=== PATIENT | female | born 1980 | race Hispanic/Latino ===

== ENCOUNTER 2020-11-20 22:27 | Emergency (ER) | payer OTHER, MEDICAID, SELFPAY ==
[2020-11-20 22:43] VITALS: BP 143/87; PULSE 73; RESP 16; TEMP 36.6; O2SAT 98; BMI 21.9
--- NOTE | 2020-11-20 22:55 | ED.ALLEREA ---
HPI - Allergic Reaction General Chief complaint: Allergic Reaction Stated complaint: allergic reaction Time Seen by Provider: 11/20/20 22:43 Source: patient Mode of arrival: Ambulatory Limitations: language barrier History of Present Illness HPI narrative: 40-year-old woman who per to some new facial cleanser pads and noticed irritation within hours of using them for the 1st time. The irritation has continued to worsen she presented to an urgent care clinic and was prescribed 2.5% hydrocortisone to use on her face and Vistaril to help with the itching. She continues to have dermal edema and small erythematous papules that I suspect are a reaction to the topical hydrocortisone. With the increasing dermal edema she is noticing some decreasing facial sensitivity. There is no facial muscular weakness. Review of Systems Review of Systems ROS Unobtainable: All systems reviewed & are unremarkable except as noted in HPI and below Patient History Social History Smoking Status: Never smoker Smoking Status: Never smoker Substance Use Type: does not use Exam Narrative Exam Narrative: General: Alert appropriate in mild distress secondary to facial itching ENT: Continued topical dermatitis reaction over the face and upper neck with dermal edema and mild erythema without hives. Respiratory: Able to speak in full sentences, no obvious respiratory distress, no wheezing, stridor or respiratory retractions Skin: No obvious rashes, warm and dry Neurologic: Grossly intact no obvious asymmetries or abnormalities Psych, appropriate insight and affect, cooperative Initial Vital Signs Initial Vital Signs: Vital Signs Temperature 97.9 F 11/20/20 22:43 Pulse Rate 73 11/20/20 22:43 Respiratory Rate 16 11/20/20 22:43 Blood Pressure 143/87 H 11/20/20 22:43 Pulse Oximetry 98 11/20/20 22:43 Course Orders Ordered: Discontinued Medications Methylprednisolone (Methylprednisolone 125 Mg/2 Ml Vial) 60 mg IM NOW ONE Stop: 11/20/20 22:53 Vital Signs Vital signs: Vital Signs - 8 hr 11/20/20 22:43 Temperature 97.9 F Pulse Rate 73 Respiratory Rate 16 Blood Pressure 143/87 H Pulse Oximetry 98 MDM - Allergic Reaction Medical Records Attestation: I reviewed the patient's medical records. [facility] Narrative Medical decision making narrative: 40-year-old woman with an adverse reaction to new cosmetic wipes causing a contact dermatitis. I believe the topical steroid she is currently using is a contact dermatitis and have asked her to discontinue this. She responded nicely to 60 mg of IM Solu-Medrol and has Vistaril to use at home. There is no evidence of infection or stroke appreciated at this time. She is safe for home discharge Discharge Plan Departure Patient Disposition: Home Clinical Impression: Allergic reaction Qualifiers: Encounter type: initial encounter Qualified Code(s): T78.40XA - Allergy, unspecified, initial encounter Contact dermatitis Qualifiers: Contact dermatitis type: allergic Contact dermatitis trigger: cosmetics Qualified Code(s): L23.2 - Allergic contact dermatitis due to cosmetics Instructions: DI for Contact Dermatitis Activity Restrictions/Additional Instructions: Thank you for coming in today It appears that you are developing a contact dermatitis from the new facial cleanser. You have appropriately stopped the cleanser. This will fix itself however there are some other things that we can do to help with your symptoms. I have given you a shot of steroids in the emergency department and I suspect that will make a significant difference by tomorrow. Please stop using the 2.5% hydrocortisone, sometimes this can actually make facial skin a little more sensitive. It is okay to continue to use the Vistaril to help control itching and help with sleep as well If you develop any new symptoms, please feel free to return to the emergency department
[2020-11-20] MEDS: methylPREDNISolone 125 MG/2 ML VIAL 60 MG IM (23:08)
== END 2020-11-20 23:20 | disposition home or self-care (01) ==
PROVIDERS: Emergency Provider Emergency Medicine
DX: L23.2 Allergic contact dermatitis due to cosmetics (principal)
CPT/HCPCS: 96372; 99281; 99283; J2930

== ENCOUNTER 2023-04-25 16:33 | Emergency (ER) | payer OTHER, MEDICAID, SELFPAY ==
[2023-04-25] VITALS (8 sets, daily range): BP systolic 111–133; BP diastolic 61–84; PULSE 77–129; RESP 18–28; TEMP 37.8–38.8; O2SAT 96–99; BMI 22.3
--- NOTE | 2023-04-25 16:51 | DI.RAD.S_ITS ---
PROCEDURE: XR CHEST 1V INDICATIONS: suspected sepsis TECHNIQUE: One view of the chest was acquired. COMPARISON: [facility], , XR CXR 1 VIEW, 03/31/2005, 11:35. FINDINGS: Surgical changes and devices: None. Lungs and pleura: Stable nodular density projecting over the left lower lung zone. Lungs are otherwise clear. No consolidation seen. No pleural effusions or pneumothorax. Mediastinum: Mediastinal contours appear normal. Heart size is normal. Bones and chest wall: No suspicious bony lesions. Overlying soft tissues appear unremarkable. IMPRESSION: No acute cardiopulmonary abnormalities or focal airspace disease. Dictated by: Lex Garsia M.D. on 04/25/2023 at 17:22 Approved by: Lex Garsia M.D. on 04/25/2023 at 17:23
[2023-04-25] MEDS: SODIUM CHLORIDE 0.9% 1,000 ML 1000 ML IV ×2 (17:02→18:59)
[2023-04-25] MEDS: ACETAMINOPHEN 325 MG TABLET 650 MG PO (17:02)
--- NOTE | 2023-04-25 17:07 | ED.GENADULT ---
HPI - General Adult General Chief complaint: Upper Respiratory Symptoms Stated complaint: sore throat, fever, cough, headache Time Seen by Provider: 04/25/23 16:51 Source: patient Mode of arrival: Ambulatory History of Present Illness HPI narrative: Patient is a 42-year-old female who arrives in the emergency department for evaluation of multiple symptoms to include sore throat, fever, cough and headache. She recently had dental work performed earlier this week. She states that she did take an antibiotic that she bought in [place] which she states is Augmentin.. She is also complaining of shortness of breath. No vomiting. No neck pain. No skin rashes. No urinary symptoms. Related Data Allergies Allergy/AdvReac Type Severity Reaction Status Date / Time No Known Drug Allergies Allergy Verified 04/25/23 16:39 Review of Systems Constitutional Constitutional: Reports body ache(s) and Reports chills ENT Ears, Nose, Mouth, and Throat: Reports system reviewed and no additional complaints, except as documented Cardiovascular Cardiovascular: Reports system reviewed and no additional complaints, except as documented Respiratory Respiratory: Reports system reviewed and no additional complaints, except as documented Gastrointestinal Gastrointestinal: Reports system reviewed and no additional complaints, except as documented Integumentary/Breasts Skin/Breast: Reports system reviewed and no additional complaints, except as documented Neurologic Neurologic: Reports system reviewed and no additional complaints, except as documented Hematologic/Lymphatic On Anticoagulants: No Patient History Social History Smoking Status: Never smoker Smoking Status: Never smoker Substance Use Type: does not use Exam Initial Vital Signs Initial Vital Signs: Vital Signs Temperature 101.6 F H 04/25/23 16:39 Pulse Rate 129 H 04/25/23 16:39 Respiratory Rate 18 04/25/23 16:39 Blood Pressure 125/84 04/25/23 16:39 Pulse Oximetry 96 04/25/23 16:39 Oxygen Delivery Method Room Air 04/25/23 16:39 Const General: cooperative and No ill appearing HENMT Head: normal to inspection Mouth: lip normal, tongue normal and moist mucous membranes Teeth and gingiva: other (Implants upper gum unremarkable) Resp Effort & Inspection: normal respiratory effort Auscultation: clear to auscultation bilaterally Cardio Rate: tachycardic Rhythm: regular rhythm GI Inspection: normal to inspection and non-distended Palpation: soft and No tender Skin General: no rashes or lesions noted Neuro General: patient alert, patient awake, patient oriented x3 and moves all extremities Speech: speech normal Extrem General: normal to inspection and capillary refill normal Psych Appearance: grossly normal and well kempt Course Orders Ordered: ED Orders 04/25/23 16:49 Urine Microscopic Stat 04/25/23 16:51 XR chest 1V Stat RT Consult Eval and Treat NOW 04/25/23 17:05 Complete Blood Count AUTO DIFF Stat Comprehensive Metabolic Panel Stat Lactate (Lactic Acid) Stat Lipase Stat PTT Partial Thromboplastin Maikel Stat Procalcitonin Stat Prothrombin Time INR Stat EKG-12 Lead Stat 04/25/23 17:17 Blood Culture Stat 04/25/23 17:50 Urine Culture Stat 04/25/23 18:08 Respiratory Panel (Film Array) Stat Discontinued Medications Acetaminophen (Acetaminophen 325 Mg Tablet) 650 mg PO NOW ONE Stop: 04/25/23 16:57 Last Admin: 04/25/23 17:02 Dose: 650 mg Documented By: AT Sodium Chloride (Normal Saline 0.9%) 1,000 mls @ 1,000 mls/hr IV BOLUS ONE Stop: 04/25/23 17:50 Last Admin: 04/25/23 17:02 Dose: 1,000 mls/hr Documented By: AT Ceftriaxone Sodium 1,000 mg/ (Sodium Chloride) 100 mls @ 200 mls/hr IV NOW ONE Stop: 04/25/23 17:09 Last Infusion: 04/25/23 18:11 Dose: 0 mls/hr Documented By: Admin: 04/25/23 17:27 Dose: 200 mls/hr Documented By: LIA Ketorolac Tromethamine (Ketorolac 30 Mg/Ml Vial) 30 mg IV NOW ONE Stop: 04/25/23 18:12 Last Admin: 04/25/23 18:25 Dose: 30 mg Documented By: LIA Ondansetron HCl (Ondansetron 4 Mg/2 Ml Inj) 4 mg IV NOW PRN PRN Reason: Nausea And Vomiting Last Admin: 04/25/23 17:27 Dose: 4 mg Documented By: LIA Vital Signs Vital signs: Vital Signs - 8 hr 04/25/23 16:39 04/25/23 17:00 04/25/23 18:09 Temperature 101.6 F H 101.1 F H 101.9 F H Pulse Rate 129 H 114 H 77 Respiratory Rate 18 21 Blood Pressure 125/84 124/79 133/77 Pulse Oximetry 96 98 99 Oxygen Delivery Method Room Air 04/25/23 18:10 Temperature 101.9 F H Pulse Rate Respiratory Rate Blood Pressure Pulse Oximetry Oxygen Delivery Method Medical Decision Making Lab Data Lab results reviewed: Yes I reviewed the patient's lab results. 04/25/23 17:05 04/25/23 17:05 Labs: Lab Results 04/25/23 04/25/23 04/25/23 Range/Units 16:49 17:05 17:05 WBC 4.6 (4.5-11.0) X10^3/uL RBC 4.48 (4.0-5.2) X10^6/uL Hgb 13.7 (12.0-16.0) g/dL Hct 38.6 (36-46) % MCV 86.2 (80-100) fL MCH 30.6 (26-34) PG MCHC 35.6 (30-36) % RDW 13.1 (11.6-14.8) % Plt Count 221 (150-400) X10^3/uL Neut % (Auto) 66.4 (50-75) % Lymph % (Auto) 24.5 L (25-40) % [place] % (Auto) 8.3 (3-14) % Eos % (Auto) 0.3 L (2-4) % Baso % (Auto) 0.5 (0-2) % Neut # (Auto) 3000 (1001-5805) /uL Lymph # (Auto) 1100 (7903-2757) /uL [place] # (Auto) 400 (0-900) /uL Eos # (Auto) 0 (0-450) /uL Baso # (Auto) 0 (0-100) /uL PT 12.2 (10.1-12.7) SECONDS INR 1.1 (0.9-1.3) APTT 30 (26-36) SECONDS Sodium (137-145) mmol/L Potassium (3.4-5.1) mmol/L Chloride (98-107) mmol/L Carbon Dioxide (22-32) mmol/L BUN (7-17) mg/dL Creatinine (0.52-1.04) mg/dL Estimated GFR (>60) mL/min BUN/Creatinine Ratio (6-22) Glucose (70-100) mg/dL Lactate (0.7-2.1) mmol/L Calcium (8.4-10.2) mg/dL Total Bilirubin (0.2-1.3) mg/dL AST (14-36) IU/L ALT (<35) IU/L Alkaline Phosphatase (38-126) U/L Total Protein (6.3-8.2) g/dL Albumin (3.5-5.0) g/dL Globulin (1.7-4.1) g/dL Albumin/Globulin Ratio (1.0-2.8) Lipase (23-300) U/L Procalcitonin (<0.5) ng/mL Urine RBC 0-1/hpf (0-5/HPF) Urine WBC None seen (0-5/HPF) Ur Squamous Epith Cells 0-1 /hpf (0-5/HPF) Urine Bacteria None seen (None) Ur Culture Indicated? Cult not indicated 04/25/23 04/25/23 Range/Units 17:05 17:05 WBC (4.5-11.0) X10^3/uL RBC (4.0-5.2) X10^6/uL Hgb (12.0-16.0) g/dL Hct (36-46) % MCV (80-100) fL MCH (26-34) PG MCHC (30-36) % RDW (11.6-14.8) % Plt Count (150-400) X10^3/uL Neut % (Auto) (50-75) % Lymph % (Auto) (25-40) % [place] % (Auto) (3-14) % Eos % (Auto) (2-4) % Baso % (Auto) (0-2) % Neut # (Auto) (0589-2680) /uL Lymph # (Auto) (5911-7311) /uL [place] # (Auto) (0-900) /uL Eos # (Auto) (0-450) /uL Baso # (Auto) (0-100) /uL PT (10.1-12.7) SECONDS INR (0.9-1.3) APTT (26-36) SECONDS Sodium 134 L (137-145) mmol/L Potassium 3.6 (3.4-5.1) mmol/L Chloride 96 L (98-107) mmol/L Carbon Dioxide 28 (22-32) mmol/L BUN 11 (7-17) mg/dL Creatinine 0.53 (0.52-1.04) mg/dL Estimated GFR > 60 (>60) mL/min BUN/Creatinine Ratio 20.8 (6-22) Glucose 125 H (70-100) mg/dL Lactate 1.0 (0.7-2.1) mmol/L Calcium 9.0 (8.4-10.2) mg/dL Total Bilirubin 0.4 (0.2-1.3) mg/dL AST 63 H (14-36) IU/L ALT 77 H (<35) IU/L Alkaline Phosphatase 104 (38-126) U/L Total Protein 7.8 (6.3-8.2) g/dL Albumin 4.6 (3.5-5.0) g/dL Globulin 3.2 (1.7-4.1) g/dL Albumin/Globulin Ratio 1.4 (1.0-2.8) Lipase 36 (23-300) U/L Procalcitonin 0.07 (<0.5) ng/mL Urine RBC (0-5/HPF) Urine WBC (0-5/HPF) Ur Squamous Epith Cells (0-5/HPF) Urine Bacteria (None) Ur Culture Indicated? Point of Care Testing Test Results Negative Urine Dip Bedside Urine Glucose Negative Bedside Urine Bilirubin - Negative Bedside Urine Ketone - Negative Urine Specific [place] 1.010 Bedside Urine Occult Blood + Bedside Urine pH 6.5 Bedside Urine Protein - Negative Bedside Urine Urobilinogen - Negative Bedside Urine Nitrite - Negative Bedside Urine Leukocytes - Negative Esterase Point of care testing: Point of Care Testing Test Results Negative Urine Dip Bedside Urine Glucose Negative Bedside Urine Bilirubin - Negative Bedside Urine Ketone - Negative Urine Specific [place] 1.010 Bedside Urine Occult Blood + Bedside Urine pH 6.5 Bedside Urine Protein - Negative Bedside Urine Urobilinogen - Negative Bedside Urine Nitrite - Negative Bedside Urine Leukocytes - Negative Esterase Imaging Data Chest x-ray: Radiologist's Impression: PROCEDURE:? XR CHEST 1V ? INDICATIONS:? suspected sepsis ? TECHNIQUE:? One view of the chest was acquired.? ? COMPARISON:? [facility], , XR CXR 1 VIEW, 03/31/2005, 11:35. ? FINDINGS:? ? Surgical changes and devices:? None.? ? Lungs and pleura:? Stable nodular density projecting over the left lower lung zone.? Lungs are otherwise clear.? No consolidation seen.? No pleural effusions or pneumothorax. ? ? Mediastinum:? Mediastinal contours appear normal.? Heart size is normal.? ? Bones and chest wall:? No suspicious bony lesions.? Overlying soft tissues appear unremarkable.? ? IMPRESSION:? No acute cardiopulmonary abnormalities or focal airspace disease. MDM Narrative Medical decision making narrative: Patient is nontoxic but she is febrile and tachycardic. Fluids were ordered. Blood cultures were obtained. Patient has not been hypotensive. Was given antipyretics. No specific source of infection has been found up to this point. Does not appear to be urinary tract infection or pneumonia. She is no skin changes. No abdominal tenderness. I have low suspicion for meningitis based on her presentation today. Patient was given antibiotics just based on her presentation. Care turned over to Dr. Rivas to follow-up and disposition.
[2023-04-25 17:17] LABS: Add Manual Diff / Slide Review NO; Basophils Absolute Auto 0 /uL (0-100); Basophils Percent Auto 0.5 % (0-2); Eosinophils Absolute Auto 0 /uL (0-450); Eosinophils Percent Auto 0.3 % (2-4); Hematocrit 38.6 % (36-46); Hemoglobin 13.7 g/dL (12.0-16.0); Lymphocytes Absolute Auto 1100 /uL (1100-4500); Lymphocytes Percent Auto 24.5 % (25-40); Mean Corpuscular HGB Conc 35.6 % (30-36); Mean Corpuscular Hemoglobin 30.6 PG (26-34); Mean Corpuscular Volume 86.2 fL (80-100); Monocytes Absolute Auto 400 /uL (0-900); Monocytes Percent Auto 8.3 % (3-14); Neutrophils Absolute Auto 3000 /uL (1500-7000); Neutrophils Percent Auto 66.4 % (50-75); Platelet Count 221 X10^3/uL (150-400); Red Blood Cell Count 4.48 X10^6/uL (4.0-5.2); Red Cell Distribution Width 13.1 % (11.6-14.8); White Blood Cell Count 4.6 X10^3/uL (4.5-11.0)
[2023-04-25] MEDS: ONDANSETRON 4 MG/2 ML INJ IV (17:27)
[2023-04-25] MEDS: cefTRIAXone 1,000 MG in SODIUM CHLORIDE 0.9% 100 ML 200 MG IV (17:27)
[2023-04-25 17:29] LABS: Bacteria Urine None Seen; Culture Indicated Urine Cult Not Indicated; RBC Urine 0-1/HPF (0-5/HPF); Squamous Epithelial Cell Urine 0-1 /HPF (0-5/HPF); WBC Urine None Seen (0-5/HPF)
[2023-04-25 17:29] LABS: INR 1.1 (0.9-1.3); Prothrombin Time 12.2 SECONDS (10.1-12.7)
[2023-04-25 17:32] LABS: PTT Partial Thromboplastin Tim 30 SECONDS (26-36)
[2023-04-25 17:38] LABS: Alanine Aminotransferase 77 IU/L (<35); Albumin 4.6 g/dL (3.5-5.0); Albumin Globulin Ratio 1.4 (1.0-2.8); Alkaline Phosphatase 104 U/L (38-126); Aspartate Aminotransferase 63 IU/L (14-36); BUN Creatinine Ratio 20.8 (6-22); Bilirubin Total 0.4 mg/dL (0.2-1.3); Blood Urea Nitrogen 11 mg/dL (7-17); Carbon Dioxide 28 mmol/L (22-32); Chloride 96 mmol/L (98-107); Estimated Glomerular Filt Rate > 60 mL/min (>60); Globulin 3.2 g/dL (1.7-4.1); Glucose 125 mg/dL (70-100); HEMOLYSIS < 15 (0-50); Lipase 36 U/L (23-300); Potassium 3.6 mmol/L (3.4-5.1); Sodium 134 mmol/L (137-145); Total Protein 7.8 g/dL (6.3-8.2)
[2023-04-25 17:54] LABS: Procalcitonin 0.07 ng/mL (<0.5)
[2023-04-25] MEDS: KETOROLAC 30 MG/ML VIAL IV (18:25)
[2023-04-25 19:18] LABS: Adenovirus Not Detected (Not Detect); B. parapertussis Not Detected (Not Detecte); Bordetella pertussis Not Detected (Not Detecte); Chlamydophila pneumoniae Not Detected (Not Detect); Coronavirus 229E Not Detected (Not Detect); Coronavirus HKU1 Not Detected (Not Detect); Coronavirus NL 63 Not Detected (Not Detect); Coronavirus OC43 Not Detected (Not Detect); Human Metapneumovirus Not Detected (Not Detect); Human Rhinovirus/Enterovirus Not Detected (Not Detect); Influenza A Detected (Not Detect); Influenza B Not Detected (Not Detect); Mycoplasma pneumoniae Not Detected (Not Detect); Parainfluenza Virus 1 Not Detected (Not Detect); Parainfluenza Virus 2 Not Detected (Not Detect); Parainfluenza Virus 3 Not Detected (Not Detect); Parainfluenza Virus 4 Not Detected (Not Detect); Respiratory Syncytial Virus Not Detected (Not Detect); SARS- CoV-2 Not Detected (Not Detecte)
== END 2023-04-25 19:47 | disposition home or self-care (01) ==
PROVIDERS: Emergency Medicine; Emergency Provider Emergency Medicine
DX: J10.1 Influenza due to other identified influenza virus with other respiratory manifestations (principal); R06.02 Shortness of breath; R00.0 Tachycardia, unspecified; Z20.822 Contact with and (suspected) exposure to COVID-19
CPT/HCPCS: 36415; 71045; 80053; 81003; 81015; 81025; 83605; 83690; 84145; 85025; 85610; 85730; 87040; 87086; 87633; 93005; 93010; 96361; 96365; 96375; 99284; J0696; J1885; J2405

== ENCOUNTER 2025-09-19 11:03 | Emergency (ER) | payer OTHER, SELFPAY ==
[2025-09-19 11:07] VITALS: BP 141/73; PULSE 91; RESP 14; TEMP 36.7; O2SAT 96; BMI 21.9
--- NOTE | 2025-09-19 12:21 | ED_ITS ---
HPI - Eye Problem General Chief complaint: Eye Problems Stated complaint: [facility] ref: Itchiness in eye;unable to sleep Time Seen by Provider: 09/19/25 11:09 Mode of arrival: Ambulatory History of Present Illness HPI Narrative: 45 years old female came in today complaining of itching in her both eyes, intermittent redness in her eyes, itching throat for the last 1 month without discharge or changing vision, fever, headache, nausea vomiting, head injury, runny nose, sore throat, coughing. She went to the urgent care and was given ketotifen eye drops, Polytrim eyedrops and was feeling better but in the last 5 day the itching came back. She was had hard time sleeping due to itching eyes but denied any discharge from the eyes, photo sensitivity. Related Data Previous Rx's ?Medication ?Instructions ?Recorded ondansetron 4 mg disintegrating 4 mg PO TID-QID PRN na usea and 04/25/23 tablet vomiting #10 tabs azelastine 0.05 % eye drops 1 drp EYE-BOTH BID #6 mL 1 11/19/24 methylprednisolone 4 mg tablets in 4 mg PO DAILY #21 e a 09/19/25 a dose pack (Medrol (Narinder)) Allergies Allergy/AdvReac Type Severity Reaction Status Date / Time No Known Drug Allergies Allergy Verified 09/19/25 11:07 Review of Systems Review of Systems Narrative: Positive for itching both eyes, intermittent redness both eyes, itching throat 1 month. Negative for discharge from the eyes, photophobia, runny nose, sore throat, coughing, fever, headache, head injury, nausea vomiting, sore throat. Patient History Social History Smoking Status: Unknown if ever smoked Smoking Status: Unknown if ever smoked Exam Narrative Exam Narrative: GENERAL: Alert awake without acute distress. HEAD: Atraumatic. Normocephalic. EYES: Pupils equal round and reactive. Extraocular motions intact. No scleral icterus. No injection or drainage. Normal both eyelids. Visual acuity was 20/100 on either eye and both eyes. ENT: Nose without bleeding, purulent drainage. Throat without erythema, tonsillar hypertrophy or exudate. Airway patent. NECK: Trachea midline. Non tender CARDIOVASCULAR: Regular rate and rhythm without murmurs, gallops, or rubs. RESPIRATORY: Clear to auscultation. Breath sounds equal bilaterally. No wheezes, rales, or rhonchi. GASTROINTESTINAL: Abdomen soft, non-tender, nondistended. EXTREMITIES: No edema or joint tenderness. BACK: Nontender without deformity or crepitance. No flank tenderness. NEURO: AOx3. SKIN: No rash or erythema of visible areas Initial Vital Signs Initial Vital Signs: Vital Signs Temperature 98.1 F 09/19/25 11:07 Pulse Rate 91 H 09/19/25 11:07 Respiratory Rate 14 09/19/25 11:07 Blood Pressure 141/73 H 09/19/25 11:07 Pulse Oximetry 96 09/19/25 11:07 Oxygen Delivery Method Room Air 09/19/25 11:07 Course Vital Signs Vital signs: Vital Signs - 8 hr 09/19/25 11:07 Temperature 98.1 F Pulse Rate 91 H Respiratory Rate 14 Blood Pressure 141/73 H Pulse Oximetry 96 Oxygen Delivery Method Room Air MDM - Eye Problem MDM Narrative Medical decision making narrative: 45 years old female came in today complaining of itching in her both eyes, intermittent redness in her eyes, itching throat for the last 1 month without discharge or changing vision, fever, headache, nausea vomiting, head injury, runny nose, sore throat, coughing. She went to the urgent care and was given ketotifen eye drops, Polytrim eyedrops and was feeling better but in the last 5 day the itching came back. She was had hard time sleeping due to itching eyes but denied any discharge from the eyes, photo sensitivity. On exam showed no conjunctival injection, eye discharge, lid swelling. Normal EOM and pupils eye. Clear cornea on both eyes. No acute distress. Visual acuity was 20/100 on each eye in both eyes. Her CV exam, lung exam, abdominal exam were normal. I refer her to see eye doctor and follow up with her PCP outpatient. She was sent home with a Medrol Narinder, azelastine eye drops. Discharge Plan Departure Patient Disposition: Home Clinical Impression: Acute allergic conjunctivitis of both eyes Instructions: DI for Conjunctivitis Activity Restrictions/Additional Instructions: Please set up primary care doctor for follow up an eye doctor as well. Please try allergy eye drop. Please come back to the emergency room if any worsening symptoms including but not limited to fever, headache, vomiting, decreased vision. Prescriptions: New azelastine 0.05 % drops 1 drp EYE-BOTH BID Qty: 6 0RF methylprednisolone [Medrol (Narinder)] 4 mg tablets,dose pack 4 mg PO DAILY Qty: 21 0RF No Action ondansetron 4 mg tablet,disintegrating 4 mg PO TID-QID PRN (Reason: nausea and vomiting) Qty: 10 0RF Referrals: Trish Friend MD [Physician, Ophthalmology] Referral Note: Ongoing itching for the last 1 month. Clinical Impression: Acute allergic conjunctivitis of both eyes Stand Alone Forms: Patient Portal/API
[2025-09-19 12:28] VITALS: BP 138/70; PULSE 78; RESP 18; TEMP 36.6; O2SAT 99
== END 2025-09-19 12:29 | disposition home or self-care (01) ==
PROVIDERS: Emergency Provider Emergency Medicine
DX: H10.13 Acute atopic conjunctivitis, bilateral (principal)
CPT/HCPCS: 99281